=== PATIENT | female | born 1945 | race Caucasian/White ===

== ENCOUNTER → 2019-03-14 08:55 | Outpatient (CLI) | payer BC, SELFPAY ==
[2019-03-14 09:03] LABS: Microscopic, Urine URINE MICROSCOPIC (MICROSCOPIC)
[2019-03-14 13:52] LABS: Creatinine,Urine Random 262 mg/dL (20-320)
[2019-03-14 13:58] LABS: Basophils % 0.5 % (0.1-2.0); Eosinophils # 0.4 K/mm3 (0.0-0.4); Eosinophils % 5.5 % (0.1-12.0); Hematocrit 37.5 % (37.0-47.0); Hemoglobin 11.6 g/dL (12.2-16.2); Lymphocytes # 2.5 K/mm3 (0.7-4.5); Mean Corpuscular HGB Conc 30.9 g/dL (31.8-35.4); Mean Corpuscular Hemoglobin 26.6 pg (27.0-31.2); Mean Corpuscular Volume 86.1 fl (81-99); Mean Platelet Volume 8.7 fl (7.4-10.4); Monocytes # 0.3 K/mm3 (0.1-1.0); Monocytes % 4.1 % (1.7-9.3); Neutrophils % 55.9 % (37.0-80.0); Platelet Count 319 K/mm3 (142-424); Red Blood Count 4.35 M/mm3 (4.20-5.40); Red Cell Distribution Width 14.7 % (11.5-17.5); White Blood Count 7.2 K/mm3 (4.8-10.8)
[2019-03-14 14:01] LABS: Albumin Level 3.7 gm/dL (3.4-5.0); Anion Gap 17.5 mEq/L (5-15); Blood Urea Nitrogen 19 mg/dL (7-18); Calcium 9.1 mg/dL (8.5-10.1); Carbon Dioxide 24 mmol/L (21.0-32.0); Chloride 102 mmol/L (98-107); Estimated Glomerular Filt Rate 21 ml/min (>60); GFR (African American) 25 ML/MIN (>60); Glucose 158 mg/dL (74-106); Phosphorous 4.6 mg/dL (2.4-4.9); Potassium 4.5 mmoL/L (3.5-5.1); Sodium 139 mmol/L (136-145)
[2019-03-14 14:16] LABS: Total Protein,Urine Random 495.8 mg/dL (0.0-11.9)
[2019-03-14 14:25] LABS: Appearance,Urine SL CLOUDY (Clear); Bilirubin,Urine Negative (Negative); Blood, Urine TRACE-I (Negative); Color,Urine YELLOW (Yellow); Glucose,Urine (UA) Negative (Negative); Ketones,Urine Negative (Negative); Leukocyte Esterase,Urine 1+ (Negative); Nitrate,Urine Negative (Negative); PH,Urine 5.5 (5.0-8.5); Protein,Urine 3+ (Negative); Specific Gravity, Urine >= 1.030 (1.005-1.030); Urobilinogen,Urine 0.2 EU/dl (0.2)
[2019-03-14 14:57] LABS: Bacteria,Urine Trace /lpf; RBC,Urine Occasional #/hpf (0-3); WBC,Urine 20-50 #/hpf (0-3)
[2019-03-15 17:48] LABS: Parathyroid Hormone Intact 65 pg/mL (15-65)
== END ==
PROVIDERS: PCP Nurse Practitioner Family; Visit Provider Internal Medicine Nephrology
DX: N18.3 Chronic kidney disease, stage 3 (moderate) (principal)
CPT/HCPCS: 36415; 80069; 81001; 82570; 82652; 83970; 84155; 85025; 87086

== ENCOUNTER → 2019-05-18 08:33 | Outpatient (CLI) | payer BC, SELFPAY ==
[2019-05-18 08:38] LABS: Microscopic, Urine URINE MICROSCOPIC (MICROSCOPIC)
[2019-05-18 15:10] LABS: Albumin Level 3.7 gm/dL (3.4-5.0); Anion Gap 15.6 mEq/L (5-15); Blood Urea Nitrogen 17 mg/dL (7-18); Calcium 8.9 mg/dL (8.5-10.1); Carbon Dioxide 25 mmol/L (21.0-32.0); Chloride 106 mmol/L (98-107); Creatinine,Serum 2.14 mg/dL (0.55-1.02); Estimated Glomerular Filt Rate 22 ml/min (>60); GFR (African American) 27 ML/MIN (>60); Glucose 158 mg/dL (74-106); Phosphorous 4.6 mg/dL (2.4-4.9); Potassium 3.6 mmoL/L (3.5-5.1); Sodium 143 mmol/L (136-145)
[2019-05-18 15:34] LABS: Basophils % 0.3 % (0.1-2.0); Eosinophils # 0.4 K/mm3 (0.0-0.4); Eosinophils % 3.5 % (0.1-12.0); Hematocrit 35.6 % (37.0-47.0); Lymphocytes # 2.4 K/mm3 (0.7-4.5); Mean Corpuscular HGB Conc 30.8 g/dL (31.8-35.4); Mean Corpuscular Hemoglobin 27.4 pg (27.0-31.2); Mean Corpuscular Volume 88.9 fl (81-99); Mean Platelet Volume 9.4 fl (7.4-10.4); Monocytes # 0.5 K/mm3 (0.1-1.0); Monocytes % 4.5 % (1.7-9.3); Neutrophils # 7.3 K/mm3 (1.8-7.8); Neutrophils % 68.8 % (37.0-80.0); Platelet Count 266 K/mm3 (142-424); Red Cell Distribution Width 14.9 % (11.5-17.5); White Blood Count 10.6 K/mm3 (4.8-10.8)
[2019-05-18 15:35] LABS: Appearance,Urine CLEAR (Clear); Bilirubin,Urine Negative (Negative); Blood, Urine 1+ (Negative); Color,Urine YELLOW (Yellow); Glucose,Urine (UA) Negative (Negative); Ketones,Urine Negative (Negative); Leukocyte Esterase,Urine Negative (Negative); Nitrate,Urine Negative (Negative); Protein,Urine 2+ (Negative); Specific Gravity, Urine 1.025 (1.005-1.030); Urobilinogen,Urine 0.2 EU/dl (0.2)
[2019-05-18 15:42] LABS: Creatinine,Urine Random 161 mg/dL (20-320); Total Protein,Urine Random 513.5 mg/dL (0.0-11.9)
[2019-05-18 15:46] LABS: Bacteria,Urine 1+ /lpf
== END ==
PROVIDERS: PCP Nurse Practitioner Family; Visit Provider Internal Medicine Nephrology
DX: N18.3 Chronic kidney disease, stage 3 (moderate) (principal)
CPT/HCPCS: 36415; 80069; 81001; 82570; 84155; 85025

== ENCOUNTER → 2019-05-25 14:52 | Outpatient (POV) | payer BC, SELFPAY | PROVIDERS: Visit Provider Internal Medicine Nephrology | DX: Z00.00 Encounter for general adult medical examination without abnormal findings (principal) ==

== ENCOUNTER → 2019-06-19 08:05 | Outpatient (CLI) | payer BC, SELFPAY ==
[2019-06-19 08:09] LABS: Microscopic, Urine URINE MICROSCOPIC (MICROSCOPIC)
[2019-06-19 14:08] LABS: Basophils % 0.5 % (0.1-2.0); Eosinophils # 0.5 K/mm3 (0.0-0.4); Eosinophils % 5.8 % (0.1-12.0); Hemoglobin 10.8 g/dL (12.2-16.2); Lymphocytes # 2.6 K/mm3 (0.7-4.5); Lymphocytes % 33.2 % (10-50); Mean Corpuscular HGB Conc 30.8 g/dL (31.8-35.4); Mean Corpuscular Hemoglobin 27.2 pg (27.0-31.2); Mean Corpuscular Volume 88.3 fl (81-99); Mean Platelet Volume 9.9 fl (7.4-10.4); Monocytes # 0.3 K/mm3 (0.1-1.0); Monocytes % 3.4 % (1.7-9.3); Neutrophils # 4.6 K/mm3 (1.8-7.8); Neutrophils % 57.2 % (37.0-80.0); Platelet Count 279 K/mm3 (142-424); Red Blood Count 3.96 M/mm3 (4.20-5.40); Red Cell Distribution Width 14.4 % (11.5-17.5)
[2019-06-19 14:33] LABS: Albumin Level 3.5 gm/dL (3.4-5.0); Anion Gap 14.8 mEq/L (5-15); Blood Urea Nitrogen 13 mg/dL (7-18); Calcium 9.5 mg/dL (8.5-10.1); Carbon Dioxide 26 mmol/L (21.0-32.0); Chloride 104 mmol/L (98-107); Creatinine,Serum 1.92 mg/dL (0.55-1.02); Estimated Glomerular Filt Rate 25 ml/min (>60); GFR (African American) 31 ML/MIN (>60); Glucose 162 mg/dL (74-106); Phosphorous 3.9 mg/dL (2.4-4.9); Potassium 3.8 mmoL/L (3.5-5.1); Sodium 141 mmol/L (136-145)
[2019-06-19 14:50] LABS: Appearance,Urine CLEAR (Clear); Bilirubin,Urine Negative (Negative); Blood, Urine 1+ (Negative); Color,Urine YELLOW (Yellow); Glucose,Urine (UA) TRACE (Negative); Ketones,Urine Negative (Negative); Leukocyte Esterase,Urine Negative (Negative); Nitrate,Urine Negative (Negative); Protein,Urine 3+ (Negative); Specific Gravity, Urine 1.025 (1.005-1.030); Urobilinogen,Urine 0.2 EU/dl (0.2)
[2019-06-19 15:33] LABS: Bacteria,Urine 1+ /lpf; RBC,Urine Occasional #/hpf (0-3)
[2019-06-19 17:25] LABS: Creatinine,Urine Random 208 mg/dL (20-320)
[2019-06-19 18:31] LABS: Total Protein,Urine Random 1094.8 mg/dL (0.0-11.9)
== END ==
PROVIDERS: PCP Nurse Practitioner Family; Visit Provider Internal Medicine Nephrology
DX: N18.3 Chronic kidney disease, stage 3 (moderate) (principal)
CPT/HCPCS: 36415; 80069; 81001; 82570; 84155; 85025; 87086

== ENCOUNTER → 2019-06-22 12:21 | Outpatient (POV) | payer BC, SELFPAY | PROVIDERS: Visit Provider Internal Medicine Nephrology | DX: Z00.00 Encounter for general adult medical examination without abnormal findings (principal) ==

== ENCOUNTER → 2019-07-18 08:18 | Outpatient (CLI) | payer BC, SELFPAY ==
[2019-07-18 08:29] LABS: Microscopic, Urine URINE MICROSCOPIC (MICROSCOPIC)
[2019-07-18 14:39] LABS: Basophils % 0.5 % (0.1-2.0); Eosinophils # 0.5 K/mm3 (0.0-0.4); Eosinophils % 5.8 % (0.1-12.0); Hematocrit 36.1 % (37.0-47.0); Hemoglobin 11.5 g/dL (12.2-16.2); Lymphocytes # 2.3 K/mm3 (0.7-4.5); Lymphocytes % 28.8 % (10-50); Mean Corpuscular HGB Conc 31.8 g/dL (31.8-35.4); Mean Corpuscular Hemoglobin 28.5 pg (27.0-31.2); Mean Corpuscular Volume 89.6 fl (81-99); Mean Platelet Volume 10.4 fl (7.4-10.4); Monocytes # 0.2 K/mm3 (0.1-1.0); Monocytes % 2.8 % (1.7-9.3); Neutrophils % 62.1 % (37.0-80.0); Platelet Count 264 K/mm3 (142-424); Red Blood Count 4.03 M/mm3 (4.20-5.40); Red Cell Distribution Width 13.2 % (11.5-17.5)
[2019-07-18 14:43] LABS: Appearance,Urine CLEAR (Clear); Bilirubin,Urine Negative (Negative); Blood, Urine 1+ (Negative); Color,Urine YELLOW (Yellow); Glucose,Urine (UA) Negative (Negative); Ketones,Urine Negative (Negative); Leukocyte Esterase,Urine Negative (Negative); Nitrate,Urine Negative (Negative); Protein,Urine 3+ (Negative); Specific Gravity, Urine 1.025 (1.005-1.030); Urobilinogen,Urine 0.2 EU/dl (0.2)
[2019-07-18 15:15] LABS: Creatinine,Urine Random 161 mg/dL (20-320)
[2019-07-18 15:24] LABS: Albumin Level 3.7 gm/dL (3.4-5.0); Anion Gap 15.3 mEq/L (5-15); Blood Urea Nitrogen 18 mg/dL (7-18); Calcium 9.3 mg/dL (8.5-10.1); Carbon Dioxide 25 mmol/L (21.0-32.0); Chloride 106 mmol/L (98-107); Creatinine,Serum 1.91 mg/dL (0.55-1.02); Estimated Glomerular Filt Rate 26 ml/min (>60); GFR (African American) 31 ML/MIN (>60); Glucose 174 mg/dL (74-106); Phosphorous 3.9 mg/dL (2.4-4.9); Potassium 4.3 mmoL/L (3.5-5.1); Sodium 142 mmol/L (136-145)
[2019-07-18 16:29] LABS: Total Protein,Urine Random 546.1 mg/dL (0.0-11.9)
[2019-07-19 07:23] LABS: HIV Screen 4th Generation wRfx Non Reactive (Non Reactive)
[2019-07-19 09:11] LABS: Hep A Ab, IgM Negative (Negative); Hepatitis B Core Antibody IgM Negative (Negative); Hepatitis B Surface Antigen Negative (Negative)
[2019-07-19 15:09] LABS: Albumin 3.4 g/dL (2.9-4.4); Alpha-1-Globulin 0.2 g/dL (0.0-0.4); Gamma Globulin 1.1 g/dL (0.4-1.8); Protein, Total 6.8 g/dL (6.0-8.5)
[2019-07-19 16:17] LABS: Immunoglobulin A, Qn 337 mg/dL (64-422); Immunoglobulin G, Qn 1123 mg/dL (700-1600)
[2019-07-19 16:24] LABS: Complement C3 140 mg/dL (82-167); Hepatitis C Antibody <0.1 s/co ratio (0.0-0.9); Immunoglobulin M, Qn 84 mg/dL (26-217)
[2019-07-19 17:09] LABS: Free Kappa Lt Chains 61.8 mg/L (3.3-19.4)
[2019-07-20 16:07] LABS: Antinuclear Antibodies, IFA Negative (.)
[2019-07-22 12:12] LABS: Albumin, U 70.1 % (.); Alpha-1-Globulin, U 1.8 % (.); Beta Globulin, U 10.7 % (.); Gamma Globulin, U 12.3 % (.); M-Spike, % Not Observed % (Not Observed)
[2019-07-22 18:47] LABS: Protein,Total,Urine 423.2 mg/dL (Not Estab.)
== END ==
PROVIDERS: PCP Nurse Practitioner Family; Visit Provider Internal Medicine Nephrology
DX: N18.3 Chronic kidney disease, stage 3 (moderate) (principal); R80.9 Proteinuria, unspecified; B99.9 Unspecified infectious disease; A49.9 Bacterial infection, unspecified
CPT/HCPCS: 36415; 80069; 80074; 81001; 82570; 82784; 83883; 84155; 84156; 84165; 84166; 85025; 86038; 86161; 86334; 86703; G0432

== ENCOUNTER → 2019-07-21 09:07 | Outpatient (CLI) | payer BC, SELFPAY ==
[2019-07-21 16:05] LABS: Creatinine,Urine Random 26 mg/dL (20-320)
[2019-07-21 16:07] LABS: Collection Time,Urine 24 hours; Creatinine 24 Hour,Urine 494 mg/24hr (630-2500); Total Volume,Urine 1900 mL (250-2400)
== END ==
PROVIDERS: PCP Nurse Practitioner Family; Visit Provider Internal Medicine Nephrology
DX: N18.3 Chronic kidney disease, stage 3 (moderate) (principal); R80.9 Proteinuria, unspecified; B99.9 Unspecified infectious disease; A49.9 Bacterial infection, unspecified
CPT/HCPCS: 82570

== ENCOUNTER → 2019-07-27 12:59 | Outpatient (POV) | payer BC, SELFPAY | PROVIDERS: Visit Provider Internal Medicine Nephrology | DX: Z00.00 Encounter for general adult medical examination without abnormal findings (principal) ==

== ENCOUNTER → 2019-10-24 07:39 | Outpatient (CLI) | payer MEDICARE, SELFPAY ==
[2019-10-24 07:44] LABS: Microscopic, Urine URINE MICROSCOPIC (MICROSCOPIC)
[2019-10-24 13:28] LABS: Appearance,Urine CLEAR (Clear); Bilirubin,Urine Negative (Negative); Blood, Urine TRACE-I (Negative); Color,Urine YELLOW (Yellow); Glucose,Urine (UA) Negative (Negative); Ketones,Urine Negative (Negative); Leukocyte Esterase,Urine 1+ (Negative); Nitrate,Urine Negative (Negative); PH,Urine 5.5 (5.0-8.5); Protein,Urine 2+ (Negative); Specific Gravity, Urine >= 1.030 (1.005-1.030); Urobilinogen,Urine 0.2 EU/dl (0.2)
[2019-10-24 13:35] LABS: Basophils # 0.1 K/mm3 (0-0.2); Basophils % 0.5 % (0.1-2.0); Eosinophils # 0.3 K/mm3 (0.0-0.4); Eosinophils % 2.5 % (0.1-12.0); Hematocrit 37.5 % (37.0-47.0); Hemoglobin 11.7 g/dL (12.2-16.2); Lymphocytes # 2.7 K/mm3 (0.7-4.5); Lymphocytes % 22.5 % (10-50); Mean Corpuscular HGB Conc 31.4 g/dL (31.8-35.4); Mean Corpuscular Volume 89.4 fl (81-99); Mean Platelet Volume 8.9 fl (7.4-10.4); Monocytes # 0.3 K/mm3 (0.1-1.0); Monocytes % 2.3 % (1.7-9.3); Neutrophils # 8.5 K/mm3 (1.8-7.8); Neutrophils % 72.2 % (37.0-80.0); Platelet Count 327 K/mm3 (142-424); Red Blood Count 4.19 M/mm3 (4.20-5.40); Red Cell Distribution Width 13.7 % (11.5-17.5); White Blood Count 11.8 K/mm3 (4.8-10.8)
[2019-10-24 13:36] LABS: Bacteria,Urine 1+ /lpf; RBC,Urine Occasional #/hpf (0-3); WBC,Urine TNTC #/hpf (0-3)
[2019-10-24 13:46] LABS: Albumin Level 3.8 gm/dL (3.4-5.0); Blood Urea Nitrogen 31 mg/dL (7-18); Calcium 9.1 mg/dL (8.5-10.1); Carbon Dioxide 23 mmol/L (21.0-32.0); Chloride 108 mmol/L (98-107); Creatinine,Serum 2.17 mg/dL (0.55-1.02); Estimated Glomerular Filt Rate 22 ml/min (>60); GFR (African American) 27 ML/MIN (>60); Glucose 145 mg/dL (74-106); Phosphorous 4.4 mg/dL (2.4-4.9); Sodium 143 mmol/L (136-145)
[2019-10-24 14:07] LABS: Creatinine,Urine Random 174 mg/dL (20-320)
[2019-10-24 14:29] LABS: Total Protein,Urine Random 327.7 mg/dL (0.0-11.9)
== END ==
PROVIDERS: PCP Nurse Practitioner Family; Visit Provider Internal Medicine Nephrology
DX: N18.4 Chronic kidney disease, stage 4 (severe) (principal); R82.90 Unspecified abnormal findings in urine
CPT/HCPCS: 36415; 80069; 81001; 82570; 84155; 85025; 87086

== ENCOUNTER → 2019-10-30 15:10 | Outpatient (POV) | payer OTHER, SELFPAY | PROVIDERS: Visit Provider Internal Medicine Nephrology | DX: Z00.00 Encounter for general adult medical examination without abnormal findings (principal) ==

== ENCOUNTER → 2020-09-23 12:15 | Outpatient (CLI) | payer MEDICARE, SELFPAY ==
--- NOTE | 2020-09-23 12:24 | XR_ITS ---
PROCEDURE: XR ELBOW RT 2V CLINICAL INDICATION: PAIN IN RT ELBOW COMPARISON: No exams were available for comparison FINDINGS: No fracture or dislocation. No lytic or blastic change. There is normal mineralization. The joint spaces are well-preserved. No significant degenerative/arthritic changes. No erosive changes evident. Other findings:None. IMPRESSION: No acute findings. Dictated by: Frantz Cochran MD 09/23/2020 12:50 Frantz Cochran MD in [facility] 09/23/2020 12:50
== END ==
PROVIDERS: PCP Nurse Practitioner Family; Visit Provider Nurse Practitioner Family
DX: M25.521 Pain in right elbow (principal)
CPT/HCPCS: 73070

== ENCOUNTER → 2020-11-18 11:56 | Outpatient (CLI) | payer MEDICARE, SELFPAY ==
--- NOTE | 2020-11-18 11:59 | MM_ITS ---
PROCEDURE: MM DIG SCREENING MAMM BI W/CAD Digital Breast Tomosynthesis Included CLINICAL INDICATION: SCREENING There is a history of breast cancer in the patient's sister diagnosed before menopause. There have been previous biopsies on each breast for benign disease. COMPARISON: MG DMSB DIG MAMM-SCREEN ESTER from 12/17/2015 MG DMSB DIG MAMM-SCREEN ESTER W/CAD from 03/26/2017 MG Screening-Bilateral Mammography from 11/15/2019 TECHNIQUE: Standard CC and MLO images and 3D Tomosynthesis was obtained. R2 CAD reviewed. FINDINGS: Breasts are composed primarily of with scattered fibroglandular densities seen throughout both breasts. There are multiple benign-appearing micro and macrocalcifications in each breast. There is a biopsy clip deep right breast and 2 biopsy clips left breast. There is faint arterial calcification in each breast. There is no suspicious lesion in either breast and no suspicious microcalcifications. IMPRESSION: Fibrofatty parenchyma with no suspicious lesions seen BI-RAD Category: 2 Benign Finding(s) FOLLOW-UP: 1YR 1 Year Follow-up (A letter has been sent to the patient regarding results of the study.) Dictated by: Dr. Terrence Avalos MD 11/26/2020 11:05 Dr. Terrence Avalos MD in [facility] 11/26/2020 11:05
== END ==
PROVIDERS: PCP Nurse Practitioner Family; Visit Provider Nurse Practitioner Family
DX: Z12.31 Encounter for screening mammogram for malignant neoplasm of breast (principal)
CPT/HCPCS: 77063; 77067

== ENCOUNTER → 2021-07-08 10:59 | Outpatient (CLI) | payer MEDICARE, SELFPAY ==
--- NOTE | 2021-07-08 11:08 | XR_ITS ---
PROCEDURE: XR HIP LT 2-3V W/PELVIS CLINICAL INDICATION: PAIN IN LEFT HIP COMPARISON: No exams were available for comparison FINDINGS: There are moderate osteoarthritic changes of the left hip with osteosclerosis of the acetabular roof and subcortical cystic changes of the femoral head. Vascular calcification noted IMPRESSION: Moderate osteoarthritis left hip Dictated by: Frantz Cochran MD 07/08/2021 11:31 Frantz Cochran MD in [facility] 07/08/2021 11:31
== END ==
LOC: RAD 11:03
PROVIDERS: PCP Nurse Practitioner Family; Visit Provider Nurse Practitioner Family
DX: M25.552 Pain in left hip (principal)
CPT/HCPCS: 73502

== ENCOUNTER → 2021-11-19 10:00 | Outpatient (CLI) | payer MEDICARE, SELFPAY ==
--- NOTE | 2021-11-19 10:06 | MM_ITS ---
PROCEDURE INFORMATION: Exam: MG Bilateral Screening 3D Mammography Exam date and time: 11/19/2021 10:06 AM Age: 76 years old Clinical indication: Screening mammogram TECHNIQUE: Imaging protocol: Bilateral Screening tomosynthesis and 2D mammography including computer-aided detection (CAD) when performed. COMPARISON: MG MM DIG SCREENING MAMM BI W/CAD 11/18/2020 12:51 PM FINDINGS: MAMMOGRAPHY: Breast composition: There are scattered areas of fibroglandular density. Mass: None. Architectural distortion: No new or suspicious architectural distortion. Calcifications: Stable benign-appearing calcifications are present. No new or suspicious cluster of microcalcifications have developed. Asymmetric density: No new or suspicious asymmetric density is present Skin thickening: None. Axillary adenopathy: None. IMPRESSION: No mammographic evidence of malignancy. Recommend annual screening mammography unless otherwise clinically indicated. ASSESSMENT: BI-RADS category 2: Benign
== END ==
PROVIDERS: PCP Nurse Practitioner Family; Visit Provider Nurse Practitioner Family
DX: Z12.31 Encounter for screening mammogram for malignant neoplasm of breast (principal)
CPT/HCPCS: 77063; 77067

== ENCOUNTER 2022-05-25 11:38 | Emergency (ER) | payer MEDICARE, SELFPAY ==
[2022-05-25] VITALS (7 sets, daily range): BP systolic 161–209; BP diastolic 66–99; PULSE 72–79; RESP 18; TEMP 36.8; O2SAT 97–100; BMI 30.9
--- NOTE | 2022-05-25 11:45 | HMH.EDGENADL ---
Discharge Plan Disposition Patient Disposition: Home, Self-Care Condition: Good Prescriptions Prescriptions: New hydrocodone-acetaminophen 5-300 mg tablet 1 tab PO Q6H PRN (Reason: pain) Qty: 10 0RF Referrals Follow up/Referrals: Patito Antunez [Primary Care Provider] - See instructions Clinical Impressions Clinical Impression: Fall, Contusion of hip Instructions Patient Instructions: How to Prevent Falls, DI for Contusion, Hydrocodone Print Language Print Language: Lao Discharge ED Provider: Anil Markham General Adult HPI General Chief complaint: Fall Stated complaint: fall Time Seen by Provider: 05/25/22 11:45 Mode of Arrival: EMS History of Present Illness HPI narrative: 77-year-old female, presents via EMS status post fall which occurred last night. She denies any palpitations, lightheadedness or syncopal events, denies any chest pain preceding the event. States she had a slip and fall onto the left side. She was unable to get up after the event, scooted over to a phone to call but was in the floor for at least a few hours. She denies striking her head or loss of consciousness, denies taking any anticoagulants. Denies any numbness, tingling. She does report bilateral hip pain rated as moderate to severe, with inability to bear weight. Related Data Previous Rx's Medication Instructions Recorded hydrocodone 5 mg-acetaminophen 300 1 tab PO Q6H PRN pain #10 tabs 05/25/22 mg tablet Allergies Allergy/AdvReac Type Severity Reaction Status Date / Time From [facility] Allergy Unknown Uncoded 09/07/17 15:06 [facility] Social History Smoking Status: Never smoker alcohol intake: never current occupational status: retired Travel in the last 8 weeks: None ROS Obtained: Yes Systems reviewed as appropriate & no additional complaints except as documented Constitutional Constitutional: Reports system reviewed and no additional complaints, except as documented Eyes Eyes: Reports system reviewed and no additional complaints, except as documented ENT Ears, Nose, Mouth, and Throat: Reports system reviewed and no additional complaints, except as documented Cardiovascular Cardiovascular: Reports system reviewed and no additional complaints, except as documented Respiratory Respiratory: Reports system reviewed and no additional complaints, except as documented Gastrointestinal Gastrointestingal: Reports system reviewed and no additional complaints, except as documented Genitourinary Female Genitourinary: Reports system reviewed and no additional complaints, except as documented Musculoskeletal Musculoskeletal: Reports arthralgias (b/l hips), Reports back pain, Denies numbness and Denies tingling Integumentary/Breasts Skin/Breast: Reports system reviewed and no additional complaints, except as documented Neurologic Neurologic: Reports system reviewed and no additional complaints, except as documented, Denies numbness and Denies tingling Endocrine Endocrine: Reports system reviewed and no additional complaints, except as documented Hematologic/Lymphatic Henatologic/Lymphatic: Reports system reviewed and no additional complaints, except as documented Physical Exam General General appearance: alert and in no apparent distress Head Head exam: atraumatic, normocephalic and normal inspection Eye Eye exam: Present normal appearance, PERRL and EOMI ENT ENT exam: Present normal exam, normal oropharynx, mucous membranes moist, TM's normal bilaterally and normal external ear exam Neck Neck exam: Present normal inspection, full ROM and trachea midline; Absent meningismus or lymphadenopathy Chest Chest inspection: Present normal inspection and symmetric chest wall rise; Absent tenderness Respiratory Respiratory exam: Present normal lung sounds bilaterally; Absent respiratory distress Cardiovascular Cardiovascular exam: Present regular rate and normal rhyt
--- NOTE | 2022-05-25 11:54 | PC.NURSE ---
pt to Rad for CT SCAN
--- NOTE | 2022-05-25 11:55 | CT_ITS ---
PROCEDURE INFORMATION: Exam: CT Abdomen And Pelvis Without Contrast Exam date and time: 05/25/2022 12:19 PM Age: 77 years old Clinical indication: Injury or trauma; Fall; Additional info: Fall, b/l hip, low back pain TECHNIQUE: Imaging protocol: Computed tomography of the abdomen and pelvis without contrast. Radiation optimization: All CT scans at this facility use at least one of these dose optimization techniques: automated exposure control; mA and/or kV adjustment per patient size (includes targeted exams where dose is matched to clinical indication); or iterative reconstruction. COMPARISON: CR XR HIP LT 2-3V W/PELVIS 07/08/2021 11:15 AM FINDINGS: Lungs: There is a 3 mm noncalcified right lower lobe nodule (series 3, image 1). Heart: There are coronary artery calcifications. Liver: Normal. No mass. Gallbladder and bile ducts: The gallbladder is surgically absent. Pancreas: Normal. No ductal dilation. Spleen: There are few punctate splenic calcifications. Adrenal glands: Normal. No mass. Kidneys and ureters: Normal. No hydronephrosis. Stomach and bowel: No obstruction. Appendix: No evidence of appendicitis. Intraperitoneal space: No free air. No significant fluid collection. Vasculature: There is athrosclerotic disease involving the abdominal aorta and pelvis vessels without an aneurysm. Lymph nodes: No enlarged lymph nodes. Urinary bladder: Unremarkable as visualized. Reproductive: The uterus is surgically absent. Bones/joints: There are degenerative changes of the hips, more prominent on the left than right. There are degenerative changes of the spine with anterolisthesis at L4-L5. Soft tissues: There is a small fat containing periumbilical hernia. IMPRESSION: 1. There is no sequela of acute visceral trauma. 2. Diverticulosis. 3. 3 mm noncalcified right lower lobe nodule. As per Fleischner Society guidelines for follow-up and management of pulmonary nodules: For patients at low risk (minimal or absent history of smoking and of other known risk factors), no follow-up needed. For patient at high risk (history of smoking or of other known risk factors), recommend follow-up chest CT at 12 months; if unchanged, no further follow-up needed.
--- NOTE | 2022-05-25 12:10 | PC.NURSE ---
pt back from CT
--- NOTE | 2022-05-25 12:14 | ECG_ITS ---
APPROVED REPORT Exam: Resting ECG HR:76 bpm ECG Measurements Heart Rate 76 AXES OR 140 P 73 QRSd 96 QRS 73 QT 381 T 58 QTc 412 Conclusion SINUS RHYTHM WITH SINUS ARRHYTHMIA NORMAL ECG UNCONFIRMED REPORT Electronically signed by : Alverto Cheney MD 05/25/2022 17:15:12
--- NOTE | 2022-05-25 12:52 | PC.NURSE ---
pt in room waiting for results
[2022-05-25 12:53] LABS: Basophils # 0.1 K/mm3 (0-0.2); Basophils % 0.9 % (0.1-2.0); Eosinophils # 0.2 K/mm3 (0.0-0.4); Eosinophils % 2.2 % (0.1-12.0); Hematocrit 35.4 % (37.0-47.0); Hemoglobin 10.8 g/dL (12.2-16.2); Lymphocytes # 0.8 K/mm3 (0.7-4.5); Lymphocytes % 11.3 % (10-50); Mean Corpuscular HGB Conc 30.5 g/dL (31.8-35.4); Mean Corpuscular Hemoglobin 30.4 pg (27.0-31.2); Mean Corpuscular Volume 99.6 fl (81-99); Mean Platelet Volume 8.4 fl (7.4-10.4); Monocytes # 0.3 K/mm3 (0.1-1.0); Monocytes % 3.7 % (1.7-9.3); Neutrophils # 5.7 K/mm3 (1.8-7.8); Neutrophils % 81.9 % (37.0-80.0); Platelet Count 230 K/mm3 (142-424); Red Blood Count 3.56 M/mm3 (4.20-5.40); Red Cell Distribution Width 14.2 % (11.5-17.5)
[2022-05-25 13:00] LABS: Alanine Aminotransferase 17 U/L (12-78); Albumin Level 3.7 g/dl (3.5-5.0); Albumin/Globulin Ratio 1.3 (1.1-1.8); Alkaline Phosphatase 99 U/L (38-126); Anion Gap 10.7 mEq/L (5-15); Aspartate Amino Transferase 49 U/L (14-36); Bilirubin,Total 0.2 mg/dl (0.2-1.3); Blood Urea Nitrogen 24 mg/dl (7-17); Carbon Dioxide 23 mmol/L (22.0-30.0); Chloride 111 mmol/L (98-107); Creatine Kinase 493 U/L (30-135); Creatinine Clearance Estimated 36 mL/min (50-200); Estimated Glomerular Filt Rate 31 ml/min (>60); GFR (African American) 38 ML/MIN (>60); Globulin 2.9 g/dL (1.3-3.2); Potassium 3.7 mmoL/L (3.5-5.1); Sodium 141 mmol/L (136-145); Total Protein,Serum 6.6 g/dl (6.3-8.2)
[2022-05-25 13:03] LABS: Glucose 45 mg/dl (74-100)
--- NOTE | 2022-05-25 13:05 | PC.NURSE ---
pt given orange juice for blood sugar of 45 and lunch tray ordered
--- NOTE | 2022-05-25 13:18 | PC.NURSE ---
pt given meal tray
[2022-05-25 14:30] LABS: POC Glucose,Bedside 70 (70-110)
--- NOTE | 2022-05-25 14:59 | PC.NURSE ---
Pt ambulated with walker throughout room prior to D/C
--- NOTE | 2022-05-25 15:03 | PC.NURSE ---
Pt ambulated around room with pain but tolerated
== END 2022-05-25 15:05 | disposition home or self-care (01) ==
PROVIDERS: Emergency Provider Emergency Medicine; PCP Nurse Practitioner Family
DX: S70.00XA Contusion of unspecified hip, initial encounter; R79.9 Abnormal finding of blood chemistry, unspecified; W19.XXXA Unspecified fall, initial encounter; Z88.8 Allergy status to other drugs, medicaments and biological substances
CPT/HCPCS: 74176; 80053; 82550; 82962; 85025; 93005; 96374; 96375; 99284; J2405